=== PATIENT | male | born 1965 | race American Indian/Alaskan Native ===

== ENCOUNTER 2021-05-22 15:59 | Emergency (ER) | payer SELFPAY ==
[2021-05-22] MEDS ORDERED: SODIUM CHLORIDE 0.9% 1000 ML 1,000 ML IV ONE (16:30)
[2021-05-22] MEDS ORDERED: FAMOTIDINE 20 MG/2 ML INJ IV ONE (16:30)
[2021-05-22] MEDS ORDERED: MORPHINE 4 MG/1 ML INJ IV ONE ×2 (16:30→18:17)
[2021-05-22] MEDS ORDERED: ONDANSETRON 4 MG/2 ML INJ IV ONE (16:30)
--- NOTE | 2021-05-22 17:13 | Emergency Department Report ---
ED Abdominal Pain HPI - General Chief Complaint: Abdominal Pain Stated Complaint: ABDOMINAL PAIN Time Seen by Provider: 05/22/21 16:20 Source: EMS Mode of arrival: Stretcher Limitations: No Limitations - History of Present Illness Initial Comments: 56-year-old male with a past medical history of hypertension presents to the complaining of abdominal pain for 1 to 2 weeks. Patient reports intermittent coffee-ground emesis and black bloody stool. He denies previous abdominal surgeries, fever alcohol abuse, NSAID, or aspirin use. He has been using Pepto- Bismol and famotidine [id number] without significant improvement. Pain is described as intermittent, sharp and throbbing and worse with palpation. Today he had a severe attack of pain causing him to fall to the ground in QT and was found in a position on the ground by EMS upon their arrival. Severity scale (0 -10): 0 - Related Data Previous Rx's Medication Instructions Recorded Last Taken Type Ferrous Sulfate [Iron 325 MG] 325 mg PO DAILY #30 tab 05/23/21 Unknown Rx Ondansetron [Zofran Odt] 4 mg PO Q8HR PRN #20 tab.rapdis 05/23/21 Unknown Rx Pantoprazole [Protonix TAB] 20 mg PO BID #30 tab 05/23/21 Unknown Rx traMADoL [Ultram 50 MG tab] 50 mg PO Q6HR PRN #15 tablet 05/23/21 Unknown Rx Allergies Allergy/AdvReac Type Severity Reaction Status Date / Time No Known Allergies Allergy Unverified 05/22/21 16:03 ED Review of Systems ROS: Stated complaint: ABDOMINAL PAIN Other details as noted in HPI Comment: All other systems reviewed and negative ED Past Medical Hx - Past Medical History Hx Hypertension: Yes - Social History Smoking Status: Current Every Day Smoker Substance Use Type: Cocaine, Marijuana - Medications Home Medications: Home Medications Medication Instructions Recorded Confirmed Last Taken Type Ferrous Sulfate [Iron 325 MG] 325 mg PO DAILY #30 tab 05/23/21 Unknown Rx Ondansetron [Zofran Odt] 4 mg PO Q8HR PRN #20 tab.rapdis 05/23/21 Unknown Rx Pantoprazole [Protonix TAB] 20 mg PO BID #30 tab 05/23/21 Unknown Rx traMADoL [Ultram 50 MG tab] 50 mg PO Q6HR PRN #15 tablet 05/23/21 Unknown Rx ED Physical Exam - General Limitations: No Limitations - Other Other exam information: General: Moderate distress Head: Atraumatic Eyes: normal appearance ENT: Moist mucous membranes Neck: Normal appearance, no midline tenderness Chest: Clear to auscultation bilaterally CV: Regular rate and rhythm Abdomen: Soft, normal bowel sounds, right upper quadrant, epigastric, left upper quadrant tenderness, nondistended, no rebound or guarding Back: Normal inspection Extremity: Normal inspection, full range of motion Neuro: Alert O x 3, no facial asymmetry, speech clear, no gross motor sensory deficit Psych: Appropriate behavior Skin: No rash ED Course Vital Signs 05/22/21 05/22/21 05/22/21 16:02 16:53 16:54 Temperature 98.6 F 98.6 F Pulse Rate 80 76 74 Respiratory 16 15 20 Rate Blood Pressure 116/80 Blood Pressure 130/90 [Right] O2 Sat by Pulse 100 100 Oximetry 05/22/21 05/22/21 05/22/21 17:00 17:16 17:30 Temperature Pulse Rate 70 78 64 Respiratory 14 17 15 Rate Blood Pressure 116/80 116/80 116/80 Blood Pressure [Right] O2 Sat by Pulse 100 100 100 Oximetry 05/22/21 05/22/21 05/22/21 17:46 18:00 18:16 Temperature Pulse Rate 77 67 81 Respiratory 18 17 15 Rate Blood Pressure 139/94 135/80 131/93 Blood Pressure [Right] O2 Sat by Pulse 100 100 100 Oximetry 05/22/21 05/22/21 05/22/21 18:30 18:46 19:00 Temperature Pulse Rate 74 68 69 Respiratory 18 18 17 Rate Blood Pressure 132/77 132/77 132/77 Blood Pressure [Right] O2 Sat by Pulse 100 100 100 Oximetry 05/22/21 05/22/21 05/22/21 19:16 20:14 20:16 Temperature Pulse Rate 68 75 Respiratory 14 15 20 Rate Blood Pressure 143/84 Blood Pressure [Right] O2 Sat by Pulse 100 100 100 Oximetry 05/22/21 05/22/21 05/22/21 20:30 20:46 23:12 Temperature Pulse Rate 72 61 80 Respiratory 16 15 16 Rate Blood Pressure Blood Pressure 122/83 [Right] O2 Sat by Pulse 100 100 99 Oximetry ED Medical Decision Making - Lab Data Result diagrams: 05/22/21 17:05 05/22/21 17:05 Lab Results 05/22/21 05/22/21 05/22/21 Range/Units 17:05 17:05 17:05 WBC 13.2 H (4.5-11.0) K/mm3 RBC 3.93 (3.65-5.03) M/mm3 Hgb 7.6 L (11.8-15.2) gm/dl Hct 26.2 L (35.5-45.6) % MCV 67 L (84-94) fl MCH 19 L (28-32) pg MCHC 29 L (32-34) % RDW 18.6 H (13.2-15.2) % Plt Count 668 H (140-440) K/mm3 Add Manual Diff Complete Total Counted 100 Seg Neuts % (Manual) 78.0 H (40.0-70.0) % Band Neutrophils % 0 % Lymphocytes % (Manual) 11.0 L (13.4-35.0) % Reactive Lymphs % (Man) 0 % Monocytes % (Manual) 5.0 (0.0-7.3) % Eosinophils % (Manual) 5.0 H (0.0-4.3) % Basophils % (Manual) 1.0 (0.0-1.8) % Metamyelocytes % 0 % Myelocytes % 0 % Promyelocytes % 0 % Blast Cells % 0 % Nucleated RBC % Not Reportable Seg Neutrophils # Man 10.3 H (1.8-7.7) K/mm3 Band Neutrophils # 0.0 K/mm3 Lymphocytes # (Manual) 1.5 (1.2-5.4) K/mm3 Abs React Lymphs (Man) 0.0 K/mm3 Monocytes # (Manual) 0.7 (0.0-0.8) K/mm3 Eosinophils # (Manual) 0.7 H (0.0-0.4) K/mm3 Basophils # (Manual) 0.1 (0.0-0.1) K/mm3 Metamyelocytes # 0.0 K/mm3 Myelocytes # 0.0 K/mm3 Promyelocytes # 0.0 K/mm3 Blast Cells # 0.0 K/mm3 WBC Morphology Not Reportable Hypersegmented Neuts Not Reportable Hyposegmented Neuts Not Reportable Hypogranular Neuts Not Reportable Smudge Cells Not Reportable Toxic Granulation Not Reportable Toxic Vacuolation Not Reportable Dohle Bodies Not Reportable Pelger-Huet Anomaly Not Reportable Shabbir Rods Not Reportable Platelet Estimate Not Reportable Clumped Platelets Not Reportable Plt Clumps, EDTA Not Reportable Large Platelets Not Reportable Giant Platelets Not Reportable Platelet Satelliting Not Reportable Plt Morphology Comment Not Reportable RBC Morphology Not Reportable Dimorphic RBCs Not Reportable Polychromasia Not Reportable Hypochromasia 2+ Poikilocytosis Not Reportable Anisocytosis Rare Microcytosis 1+ Macrocytosis Not Reportable Spherocytes Not Reportable Pappenheimer Bodies Not Reportable Sickle Cells Not Reportable Target Cells Not Reportable Tear Drop Cells Not Reportable Ovalocytes Not Reportable Helmet Cells Not Reportable [place] Bodies Not Reportable [place] Rings Not Reportable [place] Cells Not Reportable Bite Cells Not Reportable Crenated Cell Not Reportable Elliptocytes Not Reportable Acanthocytes (Spur) Not Reportable Rouleaux Not Reportable Hemoglobin C Crystals Not Reportable Schistocytes Not Reportable Malaria parasites Not Reportable Tawanda Bodies Not Reportable Hem Pathologist Commnt No PT 12.7 (12.2-14.9) Sec. INR 0.87 (0.87-1.13) APTT 27.5 (24.2-36.6) Sec. Sodium 137 (137-145) mmol/L Potassium 4.6 (3.6-5.0) mmol/L Chloride 100.8 (98-107) mmol/L Carbon Dioxide 22 (22-30) mmol/L Anion Gap 19 mmol/L BUN 12 (9-20) mg/dL Creatinine 0.7 L (0.8-1.3) mg/dL Estimated GFR > 60 ml/min BUN/Creatinine Ratio 17 % Glucose 96 (75-100) mg/dL Calcium 9.8 (8.4-10.2) mg/dL Magnesium 2.30 (1.7-2.3) mg/dL Total Bilirubin < 0.20 (0.1-1.2) mg/dL AST 16 (5-40) units/L ALT 12 (7-56) units/L Alkaline Phosphatase 76 (35-129) units/L Total Protein 7.1 (6.3-8.2) g/dL Albumin 4.1 (3.9-5) g/dL Albumin/Globulin Ratio 1.4 % Lipase 46 (13-60) units/L Urine Color (Yellow) Urine Turbidity (Clear) Urine pH (5.0-7.0) Ur Specific [place] (1.003-1.030) Urine Protein (Negative) mg/dL Urine Glucose (UA) (Negative) mg/dL Urine Ketones (Negative) mg/dL Urine Blood (Negative) Urine Nitrite (Negative) Urine Bilirubin (Negative) Urine Urobilinogen (<2.0) mg/dL Ur Leukocyte Esterase (Negative) Urine WBC (Auto) (0.0-6.0) /HPF Urine RBC (Auto) (0.0-6.0) /HPF Urine Mucus /HPF Blood Type Antibody Screen 05/22/21 05/22/21 Range/Units 17:05 Unknown WBC (4.5-11.0) K/mm3 RBC (3.65-5.03) M/mm3 Hgb (11.8-15.2) gm/dl Hct (35.5-45.6) % MCV (84-94) fl MCH (28-32) pg MCHC (32-34) % RDW (13.2-15.2) % Plt Count (140-440) K/mm3 Add Manual Diff Total Counted Seg Neuts % (Manual) (40.0-70.0) % Band Neutrophils % % Lymphocytes % (Manual) (13.4-35.0) % Reactive Lymphs % (Man) % Monocytes % (Manual) (0.0-7.3) % Eosinophils % (Manual) (0.0-4.3) % Basophils % (Manual) (0.0-1.8) % Metamyelocytes % % Myelocytes % % Promyelocytes % % Blast Cells % % Nucleated RBC % Seg Neutrophils # Man (1.8-7.7) K/mm3 Band Neutrophils # K/mm3 Lymphocytes # (Manual) (1.2-5.4) K/mm3 Abs React Lymphs (Man) K/mm3 Monocytes # (Manual) (0.0-0.8) K/mm3 Eosinophils # (Manual) (0.0-0.4) K/mm3 Basophils # (Manual) (0.0-0.1) K/mm3 Metamyelocytes # K/mm3 Myelocytes # K/mm3 Promyelocytes # K/mm3 Blast Cells # K/mm3 WBC Morphology Hypersegmented Neuts Hyposegmented Neuts Hypogranular Neuts Smudge Cells Toxic Granulation Toxic Vacuolation Dohle Bodies Pelger-Huet Anomaly Shabbir Rods Platelet Estimate Clumped Platelets Plt Clumps, EDTA Large Platelets Giant Platelets Platelet Satelliting Plt Morphology Comment RBC Morphology Dimorphic RBCs Polychromasia Hypochromasia Poikilocytosis Anisocytosis Microcytosis Macrocytosis Spherocytes Pappenheimer Bodies Sickle Cells Target Cells Tear Drop Cells Ovalocytes Helmet Cells [place] Bodies [place] Rings [place] Cells Bite Cells Crenated Cell Elliptocytes Acanthocytes (Spur) Rouleaux Hemoglobin C Crystals Schistocytes Malaria parasites Tawanda Bodies Hem Pathologist Commnt PT (12.2-14.9) Sec. INR (0.87-1.13) APTT (24.2-36.6) Sec. Sodium (137-145) mmol/L Potassium (3.6-5.0) mmol/L Chloride (98-107) mmol/L Carbon Dioxide (22-30) mmol/L Anion Gap mmol/L BUN (9-20) mg/dL Creatinine (0.8-1.3) mg/dL Estimated GFR ml/min BUN/Creatinine Ratio % Glucose (75-100) mg/dL Calcium (8.4-10.2) mg/dL Magnesium (1.7-2.3) mg/dL Total Bilirubin (0.1-1.2) mg/dL AST (5-40) units/L ALT (7-56) units/L Alkaline Phosphatase (35-129) units/L Total Protein (6.3-8.2) g/dL Albumin (3.9-5) g/dL Albumin/Globulin Ratio % Lipase (13-60) units/L Urine Color Yellow (Yellow) Urine Turbidity Clear (Clear) Urine pH 6.0 (5.0-7.0) Ur Specific [place] 1.020 (1.003-1.030) Urine Protein <15 mg/dl (Negative) mg/dL Urine Glucose (UA) Neg (Negative) mg/dL Urine Ketones Neg (Negative) mg/dL Urine Blood Neg (Negative) Urine Nitrite Neg (Negative) Urine Bilirubin Neg (Negative) Urine Urobilinogen < 2.0 (<2.0) mg/dL Ur Leukocyte Esterase Neg (Negative) Urine WBC (Auto) 1.0 (0.0-6.0) /HPF Urine RBC (Auto) 3.0 (0.0-6.0) /HPF Urine Mucus 3+ /HPF Blood Type A POSITIVE Antibody Screen Negative - EKG Data -: EKG Interpreted by Mn EKG shows normal: sinus rhythm, ST-T waves (No STEMI) - Radiology Data Radiology results: report reviewed CT ABDOMEN AND PELVIS WITH IV CONTRAST INDICATION: n,v, upper abd pain. COMPARISON: None available. TECHNIQUE: All CT scans at this facility use dose modulation, automated exposure control, iterative reconstruction or weight based dosing, when appropriate, to reduce radiation dose to as low as reasonably achievable. FINDINGS: Lung Bases: No significant abnormality. Skeletal System: No acute abnormality. ABDOMEN: Liver: No significant abnormality. Gallbladder: No significant abnormality. Bile Ducts: No significant abnormality. Adrenals: No significant abnormality. Right Kidney: No significant abnormality. Left Kidney: No significant abnormality. Pancreas: No significant abnormality. Spleen: No significant abnormality. Upper GI tract: No significant abnormality. Lymph Nodes: No significant adenopathy. Aorta: No significant abnormality. Additional Findings: No significant abnormality. PELVIS: Colon: No acute abnormality. Diverticulosis is noted. Urinary Bladder and Distal Ureters: No significant abnormality. Appendix: No significant abnormality. Lymph Nodes: No significant adenopathy. Additional Findings: None. IMPRESSION: 1. Per the gas technician, there was extravasation of contrast x3. As a result, there is minimal contrast administered, that which was administered is already in the renal collecting systems and urinary bladder. This along with paucity of intra-abdominal fat limits the exam. Accounting for these limitations, no acute findings. - Medical Decision Making 56-year-old male presents with abdominal pain, nausea, vomiting. Pain improved with ED treatment. Anemia noted with microcytic MCV suggestive of iron deficiency. Guaiac negative stools on examination. CT without acute findings. Patient will be placed on iron tablets, medication, encouraged to follow-up with GI as outpatient for further treatment and testing Critical Care Time: No Critical care attestation.: If time is entered above; I have spent that time in minutes in the direct care of this critically ill patient, excluding procedure time. ED Disposition Clinical Impression: Acute gastritis, Microcytic anemia Disposition: HOME / SELF CARE / HOMELESS Is pt being admited?: No Does the pt Need Aspirin: No Condition: Stable Instructions: Preventing Iron Deficiency Anemia, Adult, Gastritis, Adult Additional Instructions: Take the medication as prescribed. Please note you are being placed on iron tablets and tramadol (Pain medication). The combination of both can cause constipation. Take stool softeners or laxatives as needed. Follow-up with your doctor or doctor/clinic provided. Return if symptoms worsen as indicated by your discharge instructions. Prescriptions: Ferrous Sulfate [Iron 325 MG] 325 mg PO DAILY #30 tab Pantoprazole [Protonix TAB] 20 mg PO BID #30 tab traMADoL [Ultram 50 MG tab] 50 mg PO Q6HR PRN #15 tablet PRN Reason: Pain Ondansetron [Zofran Odt] 4 mg PO Q8HR PRN #20 tab.rapdis PRN Reason: Nausea And Vomiting Referrals: PRIMARY CARE, [Primary Care Provider] - 3-5 Days BECKIE TRUJILLO MD [Staff Physician] - 3-5 Days (GI doctor) [facility] [Provider Group] - 3-5 Days (Primary care clinic) ANGELITO HYDE MD [Staff Physician] - 3-5 Days (Primary care doctor) Time of Disposition: 00:55
[2021-05-22 18:29] LABS: Mean Corpuscular HGB Conc 29 % (32-34); Platelet Count 668 K/mm3 (140-440); Red Blood Count 3.93 M/mm3 (3.65-5.03); Red Cell Distribution Width 18.6 % (13.2-15.2)
[2021-05-22 18:30] LABS: Hematocrit 26.2 % (35.5-45.6); Hemoglobin 7.6 gm/dl (11.8-15.2); INR 0.87 (0.87-1.13); Mean Corpuscular Volume 67 fl (84-94)
[2021-05-22 18:31] LABS: Partial Thromboplastin Time 27.5 Sec. (24.2-36.6)
[2021-05-22 18:41] LABS: Alanine Aminotransferase 12 units/L (7-56); Albumin 4.1 g/dL (3.9-5); Blood Urea Nitrogen 12 mg/dL (9-20); Calcium 9.8 mg/dL (8.4-10.2); Hemolysis Index 5
[2021-05-22 18:48] LABS: BUN/Creatinine Ratio 17
[2021-05-22 19:18] LABS: Bilirubin,Urine NEG (Negative); Blood,Urine NEG (Negative); Color,Urine Yellow (Yellow); Mucus,Urine 3+ /HPF; Protein,Urine <15 mg/dL mg/dL (Negative); Urobilinogen,Urine < 2.0 mg/dL (<2.0)
--- NOTE | 2021-05-22 20:40 | Cat Scan Report ---
CT ABDOMEN AND PELVIS WITH IV CONTRAST INDICATION: n,v, upper abd pain. COMPARISON: None available. TECHNIQUE: All CT scans at this facility use dose modulation, automated exposure control, iterative reconstructi on or weight based dosing, when appropriate, to reduce radiation dose to as low as reasonably achieva ble. FINDINGS: Lung Bases: No significant abnormality. Skeletal System: No acute abnormality. ABDOMEN: Liver: No significant abnormality. Gallbladder: No significant abnormality. Bile Ducts: No significant abnormality. Adrenals: No significant abnormality. Right Kidney: No significant abnormality. Left Kidney: No significant abnormality. Pancreas: No significant abnormality. Spleen: No significant abnormality. Upper GI tract: No significant abnormality. Lymph Nodes: No significant adenopathy. Aorta: No significant abnormality. Additional Findings: No significant abnormality. PELVIS: Colon: No acute abnormality. Diverticulosis is noted. Urinary Bladder and Distal Ureters: No significant abnormality. Appendix: No significant abnormality. Lymph Nodes: No significant adenopathy. Additional Findings: None. IMPRESSION: 1. Per the technical systems architect, there was extravasation of contrast x3. As a result, there is minimal contrast a dministered, that which was administered is already in the renal collecting systems and urinary bladd er. This along with paucity of intra-abdominal fat limits the exam. Accounting for these limitations, no acute findings. Signer Name: Chong Lerner MD Signed: 05/22/2021 8:36 PM Workstation Name: [id number]
[2021-05-22 21:16] LABS: Total Cells Counted 100
[2021-05-22 21:17] LABS: Anisocytosis RARE; Hypochromasia 2+
[2021-05-22 23:13] VITALS: BP 122/83
--- NOTE | 2021-05-23 10:29 | Electrocardiograph Report ---
[facility] Test Date: 2021-05-22 Test Time: 19:10:07 Pat Name: NIKKI AGGARWAL Department: Room: Gender: M Station Installer And Repairer: SHANTELL : 1965 Requested By: ANTHONY FRITZ Order Number: [id number] Reading MD: Mikey Saldaña Measurements Intervals Venus Rate: 69 P: 68 AL: 167 QRS: 76 QRSD: 82 T: 68 QT: 415 QTc: 443 Interpretive Statements Sinus rhythm Consider left ventricular hypertrophy Nonspecific STT abnrm, anterolateral leads No previous ECG available for comparison Electronically Signed On 05-23-2021 10:29:40 EDT by Mikey Saldaña
== END 2021-05-23 02:00 | disposition home or self-care (01) ==
LOC: ED 15:59
DX: K29.00 Acute gastritis without bleeding (principal); D50.9 Iron deficiency anemia, unspecified; F17.200 Nicotine dependence, unspecified, uncomplicated; I10 Essential (primary) hypertension; F12.90 Cannabis use, unspecified, uncomplicated
CPT/HCPCS: 36415; 74177; 80053; 81001; 82270; 83690; 83735; 85007; 85025; 85610; 85730; 86850; 86900; 86901; 93005; 96361; 96374; 96375; 96376; 99284; J2270; J2405; J3490; J7030; Q9967; Q0162